=== PATIENT | female | born 1985 | race Caucasian/White ===

== ENCOUNTER 2020-05-10 16:23 | Inpatient (IN) | payer OTHER ==
[~2020-05-10] VITALS: Ht 157.5 cm; Wt 103.1 kg
[2020-05-10 16:53] VITALS: Ht 157.5 cm; Wt 103.1 kg
--- NOTE | 2020-05-10 17:30 | NUR ---
X3 ATTEMPTS MADE BY ME TO OBTAIN IV ACCESS WITH LARGE BORE SUDHA FOR IV CONTRAST, WITH NO SUCCESS, ABLE TO OBTAIN BLOOD FOR LAB. AWAITING DR LEON'S RETURN FROM RAPID RESPONSE TO NOTIFY.
[2020-05-10 17:36] LABS: BASOPHIL % 1.3 % (0-2); PLATELET COUNT 207 x10^3mcL (130-400)
--- NOTE | 2020-05-10 17:36 | NUR ---
DR LEON MADE AWARE UNABLE TO OBTAIN IV.
--- NOTE | 2020-05-10 18:04 | NUR ---
PT MEDICATED PER EMAR.
--- NOTE | 2020-05-10 18:05 | NUR ---
PT INSTRUCTED URINE SAMPLE NEEDED, PER PT UNABLE TO URINATE AT THIS TIME, STS SHE WILL NOTIFY ME UPON REQUIRING ASSISTANCE TO RESTROOM. CALL LIGHT WITHIN REACH, ON FULL CM, IN POSITION OF COMFORT. PT USING CALL LIGHT TO TURN ON TV.
[2020-05-10 18:25] LABS: CALCIUM 8.7 mg/dL (8.5-10.1); CARBON DIOXIDE 32.1 mmol/L (21-32); CHLORIDE SERUM 100 mmol/L (98-107); CREATININE SERUM 0.7 mg/dL (0.6-1.0); GFR1 > 60 mL/min; GLUCOSE SERUM 84 mg/dL (74-106); POTASSIUM SERUM 4.2 mmol/L (3.5-5.1); SODIUM SERUM 134 mmol/L (136-145)
[2020-05-10 18:31] LABS: ALBUMIN 3.5 g/dL (3.4-5.0); ALKALINE PHOSPHATASE 71 U/L (46-116); ALT/SGPT 27 U/L (14-59); AST/SGOT 30 U/L (15-37); BILIRUBIN TOTAL 0.49 mg/dL (0.20-1.00); LIPASE 115 IU/L (73-393); TOTAL PROTEIN, SERUM 7.7 g/dL (6.4-8.2)
--- NOTE | 2020-05-10 18:37 | NUR ---
PT ASSISTED UP AND OUT OF BED, TOLERATED WELL. PT AMBULATORY WITH NO ASSIST TO RESTROOM TO PROVIDE CLEAN CATCH URINE SAMPLE.
[2020-05-10 18:51] LABS: microscopic required? NO
[2020-05-10 19:08] LABS: UA SPECIFIC GRAVITY 1.015 (1.005-1.035); urine erythrocyte NEGATIVE (NEGATIVE)
--- NOTE | 2020-05-10 19:17 | NUR ---
REPORT GIVEN TO RAZ SMITH TO ASSUME CARE OF PT.
--- NOTE | 2020-05-10 19:17 | NUR ---
REPORT RECEIVED FROM BRUCE CRANDALL TO ASSUME PATIENT CARE.
--- NOTE | 2020-05-10 19:18 | NUR ---
PATIENT OFF THE FLOOR TO CT, PATIENT AMBULATED WITH STEADY GAIT, NO DISTRESS NOTED AT THIS TIME.
--- NOTE | 2020-05-10 19:41 | NUR ---
PATIENT RETURN FROM CT, STATES NAUSEA, NOTIFIED DR. LEON.
--- NOTE | 2020-05-10 19:59 | NUR ---
PATIENT MEDICATED WITH ZOFRAN 4MG IV, PLEASE SEE EMAR, PATIENT TOLERATED WELL. CALL LIGHT WITHIN REACH, WILL CONTINUE MONITOR.
--- NOTE | 2020-05-10 20:04 | NUR ---
DR. LEON AT BEDSIDE DISCUSSING RESULTS AND TREATMENT.
--- NOTE | 2020-05-10 20:23 | NUR ---
PATIENT STATES LAST TIME SHE ATE WAS AROUND "11AM TODAY".
--- NOTE | 2020-05-10 20:30 | NUR ---
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
--- NOTE | 2020-05-10 21:09 | NUR ---
PATIENT AMBULATED TO THE RESTROOM WITH A STEADY GAIT AND BACK TO ORTHO, CALL LIGHT WITHIN REACH, WILL CONTINUE TO MONITOR.
--- NOTE | 2020-05-10 21:41 | NUR ---
REPORT GIVEN TO HEIKE CRANDALL FROM SURGERY, ALL QUESTIONS ADDRESSED.
--- NOTE | 2020-05-10 21:58 | NUR ---
PATIENT PREOP CHECK LIST COMPLETED. CONCENTS PRINTED AND ADDED TO PATIENT CHART. REPORT TRANSPORTED TO SURGERY BY SHAWANDA CRANDALL AND AARON CRANDALL. PATIENT ABLE TO AMBULATED FROM BED TO [facility] WITH A STEADY GAIT, NO DISTRESS NOTED AT THE TIME OF TRANSPORT. ALL BELONGING WITH PATIENT.
--- NOTE | 2020-05-11 00:04 | NUR ---
RECEIVED PT FROM [facility], TRANSFER TO BED WITH 4 STAFF MEMBERS. PT DROWSY BUT AROUSABLE, CRYING AND ASKING FOR PAIN MED, C/O ABD 10/10 AND DRIP OFF TO SLEEP, PT OPEN EYES TO COMMANDS. BUT UNABLE TO KEEP CONVERSATION. ORIENTED TO CALL LIGHT, CARE ENDORSE TO ODALYS CRANDALL.
--- NOTE | 2020-05-11 00:25 | NUR ---
RECEIVED PT FROM SHELL CRANDALL. PT STILL DROWSY FROM PROCEDURE, BUT C/O PAIN. WILL MEDICATE ACCORDINGLY PER MAR ORDER. ORIENTED TO ROOM AND SURROUNDINGS. SIDE RAILS UP X2. BED IN LOWEST POSITION. CALL LIGHT WITHIN REACH. WILL CONTINUE TO MONITOR.
[2020-05-11 00:29] VITALS: BP 111/61
--- NOTE | 2020-05-11 00:45 | NUR ---
ADMINISTERED ZOSYN PER MAR ORDER, INFUSING AT 100CC/HR. WILL MONITOR FOR ADVERSE EFFECTS. NORCO PRN ADMINISTERED FOR PAIN. WILL REASSESS AND CHECK FOR EFFECTIVENESS. WILL CONTINUE TO MONITOR.
--- NOTE | 2020-05-11 02:00 | NUR ---
PT C/O 07/11 PAIN. STATING SHE IS UNCOMFORTABLE. TOLD PT SHE WAS JUST MEDICATED WITH NORCO ONE HOUR AGO AND PAIN MEDICATION IS NOT DUE AT THIS TIME.
--- NOTE | 2020-05-11 02:25 | NUR ---
ATTEMPTED TO ASSIST PT TO BATHROOM, UNABLE TO LIFT SELF UP IN BED. PT IS BEING PERSISTANT WITH GOING TO THE BATHROOM AFTER OFFERING A BEDSIDE COMMODE AND BED MATHEW. PT IS TEARFUL AND REFUSING. AFTER NUMEROUS OF TRIES, PT IS AGREEABLE TO BED MATHEW.
--- NOTE | 2020-05-11 04:16 | NUR ---
PT MEDICATED WITH MORPHINE AND ZOFRAN PER NOV ORDER. WILL REASSESS AND CHECK EFFECTIVENESS.
[2020-05-11 05:32] VITALS: BP 119/63
--- NOTE | 2020-05-11 06:39 | NUR ---
COMFORT AND SAFETY MEASURES MAINTAINED. ALL NEEDS ASSESSED AND ATTENDED TO. WILL CONTINUE TO MONITOR AND ENDORSE CARE TO DAY SHIFT NURSE.
[2020-05-11 07:07] LABS: BASOPHIL % 0.2 % (0-2); PLATELET COUNT 170 x10^3mcL (130-400)
[2020-05-11 07:26] LABS: CALCIUM 7.9 mg/dL (8.5-10.1); CARBON DIOXIDE 27.1 mmol/L (21-32); CHLORIDE SERUM 102 mmol/L (98-107); CREATININE SERUM 0.7 mg/dL (0.6-1.0); GFR1 > 60 mL/min; GLUCOSE SERUM 111 mg/dL (74-106); POTASSIUM SERUM 3.7 mmol/L (3.5-5.1); SODIUM SERUM 136 mmol/L (136-145)
[2020-05-11 07:55] LABS: RED CELL DISTRIBUTION WIDTH 14.7 % (11.5-14.5)
[2020-05-11 09:45] VITALS: BP 104/54
[2020-05-11 14:18] VITALS: BP 98/47
--- NOTE | 2020-05-11 15:35 | NUR ---
UPDATE NOTES PT AAOX4 AND IN A STABLE CONDITION. PT COMPLAINED OF PAIN AND MEDICATED WITH PRN PAIN MEDICATIONS TO GOOD EFFECT. 24G IV INSERTED INTO LEFT HAND. VITALS ARE STABLE WITH NO DISTRESS NOTED. ON ROOM AIR. BED IN LOW POSITION WITH CALL LIGHT WITHIN REACH. PT ADVANCED TO A CLEAR LIQUID DIET. WILL CONTINUE TO MONITOR.
[2020-05-11 18:33] VITALS: BP 114/59
--- NOTE | 2020-05-11 20:00 | NUR ---
RECEIVED PT IN BED, PT IS AWAKE, ALERT, ORIENTED X4/ SPEECH CLEAR. ABLE TO MAKE NEEDS KNOWN. NO CHEST PAIN NOTED. DENIES PRESSURE. LUNG SOUNDS CLEAR. BREATHING EASILY ON ROOM AIR. BS ACTIVE IN ALL FOUR QUADS. MILD ABS PAIN NOTED, TOLERABLE AT THIS TIME. S/P LAP APPENDECTOMY, X3 BANDAIDS TO ABD CDI. PT ABLE TO AMBULATE WITH STAND BY ASSISTANCE. FULL ROM, PASSIVE. VOIDING FREELY WITH BRP. IV TO LEFT HAND INFUSING D5NS AT 80ML/HR. SHIFT ASSESSMENT COMPLETED. INSTRUCTED PT TO USE CALL LIGHT WHICH IS WITHIN REACH. BED IS IN LOWEST POSITION. ALL NEEDS TENDED TO. WILL CONTINUE TO MONITOR CLOSELY.
[2020-05-11 21:45] VITALS: BP 100/56
--- NOTE | 2020-05-12 | NUR ---
ZOSYN INFUSING WELL AT THIS TIME, PT C/O PAIN TO MID ABD, MEDICATED WITH MORPHINE ORDERED FOR PAIN. ALL NEEDS TENDED TO. WILL CONTINUE TO MONITOR CLOSELY.
--- NOTE | 2020-05-12 04:00 | NUR ---
PT C/O PAIN TO ABD, MEDICATED WITH NORCO. ALL NEEDS TENDED TO. WILL CONTINUE TO MONITOR CLOSELY.
[2020-05-12 04:39] VITALS: BP 114/63
--- NOTE | 2020-05-12 06:45 | NUR ---
PT APPEARS TO BE SLEEPING IN NO DISTRESS. ALL NEEDS TENDED TO. ALL DUE MEDS GIVEN ORDERED. CALL LIGHT WITHIN REACH. BED IS IN LOWEST POSITION. WILL ENDORSE TO INCOMING SHIFT.
[2020-05-12 09:06] VITALS: BP 117/70
[2020-05-12 10:50] VITALS: BP 117/70
--- NOTE | 2020-05-12 11:27 | NUR ---
UPDATE NOTES PT IS AAOX4 AND IN A STABLE CONDITION. NO SIGNS OF ANY DISTRESS NOTED, AND PAIN MANAGED WITH MEDICATIONS PER PT REQUEST. PT IS TO BE DISCHARGED HOME TODAY AND I HAVE PROVIDED TEACHING REGARDING HER ABDOMINAL WOUND CARE S/P LAP APPENDECTOMY. ALL INTERVENTIONS AND DISCHARGE INTERVENTIONS CARRIED OUT PER PROTOCOL. BED IS IN THE LOW POSITION WITH CALL LIGHT WITHIN REACH. PT ON ROOM AIR AND HAS GOOD SATURATION. WILL CONTINUE TO MONITOR.
[2020-05-12 12:38] VITALS: BP 113/53
== END 2020-05-12 17:15 | disposition home or self-care (01) | DRG 234 ==
LOC: ED 16:23 → MU 20:22
PROVIDERS: Student in an Organized Health Care Education/Training Program; Surgery; ADMIT Internal Medicine Pulmonary Disease; ATTEND Internal Medicine Pulmonary Disease
PROC: 0DTJ4ZZ Resection of Appendix, Percutaneous Endoscopic Approach (ICD-10-PCS; principal; 2020-05-10 22:00)
DX: K35.80 Unspecified acute appendicitis (principal); E66.9 Obesity, unspecified; Z88.1 Allergy status to other antibiotic agents; Z88.6 Allergy status to analgesic agent; Z79.899 Other long term (current) drug therapy
CPT/HCPCS: G0378; J2175; J2250; J2270; J2405; J2543; J3010; J3490; J7030; J7042; Q9967